=== PATIENT | male | born 1975 | race Caucasian/White ===

== ENCOUNTER 2017-02-20 17:10 | Emergency (ER) | payer OTHER ==
[~2017-02-20] VITALS: Ht 177.8 cm; Wt 70.0 kg
[2017-02-20 17:17] VITALS: TEMP 36.6; O2SAT 99; Ht 177.8 cm; Wt 70.0 kg
[2017-02-20] MEDS ORDERED: SODIUM CHLORIDE 0.9% 1000ML 1,000 ML IV STA (17:23)
[2017-02-20 17:51] LABS: BASO % 0.2 %; BASO ABS # 0.01 K/uL (0-0.2); COMPLETE YES; EOS % 4.8 %; HEMATOCRIT 43.7 % (42-52); IG% 0.2 %; LYMPH % 39.4 %; LYMPH ABS # 2.54 K/uL (1.2-3.4); MEAN CELL VOLUME 96.9 fL (80-100); MEAN CORPUSCULAR HEMOGLOBIN 33.9 pg (25-34); MEAN PLATELET VOLUME 10.5 fL (7.4-10.4); MONO % 8.5 %; NEUT % 46.9 %; PLATELET COUNT 224 K/uL (130-400); RED BLOOD COUNT 4.51 M/uL (4.7-6.1); WHITE BLOOD COUNT 6.44 K/uL (4.8-10.8)
--- NOTE | 2017-02-20 18:05 | EMERGENCY ROOM VISIT NOTE ---
History Report prepared by Charles: Robby Troncoso Under the Supervision of: Dr. Nory Cohen M.D. First contact with patient: 17:11 Chief Complaint: SYNCOPE (NEAR SYNCOPE) Stated Complaint: SYNCOPE History of Present Illness The patient is a 41 year old male who presents to the Emergency Room after a resolved syncopal episode that occurred prior to arrival. The patient states that he 'drank a lot last night' and 'felt queasy and extremely hung over.' He reports that he was out to dinner when all of a sudden he felt queasy, lightheaded, and began experiencing diaphoresis. The patient states that he gave it sometime and then lied his head down, and the next thing he remembered he was on the floor. He notes that he had not eaten anything since his late dinner last night. The patient reports that after receiving a sodium chloride solution in the ambulance, he feels much better. The patient's notes that he put his head down, and he looked like he was trying to stay conscious. She reports she touched him and he leaned his head into her. She notes she then proceeded to lay him on the floor. His states that the patient was unconscious for about 10 to 15 seconds, and then remained on the floor for a few minutes, after regaining consciousness. She reports that while the patient was on the floor, he was given ice and cold towels that brought his color back. The patient reports that this made him feel better. She notes that he tried standing because he wanted to get some air outside but lost his color again. The reports the patient had to sit back down. The patient denies vomiting. Source of History: patient, spouse/significant other Onset: Prior to arrival Position: other (global) Quality: other (syncopal episode) Timing: resolved Modifying Factors (Relieving): ice, other (sodium chloride solution) Associated Symptoms: + diaphoresis, No vomiting Note: Associated symptoms: dizziness, lightheaded Review of Systems See HPI for pertinent positives & negatives. A total of 10 systems reviewed and were otherwise negative. Past Medical & Surgical denies Family History No pertinent family history reported. Social History Smoking Status: Current Every Day Smoker (1 pack a day) Alcohol Use: occasionally Drug Use: none Marital Status: Occupation Status: employed Current/Historical Medications No Active Prescriptions or Reported Meds Allergies Coded Allergies: No Known Allergies (Unverified , 03/30/11) Physical Exam Vital Signs Date Time Temp Pulse Resp B/P Pulse Ox O2 Delivery O2 Flow Rate FiO2 02/20/17 20:30 84 16 124/78 99 02/20/17 19:30 63 16 126/90 97 02/20/17 18:55 74 16 126/92 96 Room Air 02/20/17 17:45 68 116/83 72 126/91 80 130/92 02/20/17 17:23 80 02/20/17 17:17 99 Room Air 02/20/17 17:17 36.6 66 16 129/88 97 Room Air Physical Exam Vital signs reviewed. General: Well-appearing, in no significant distress. HEENT: No scleral icterus, PERRLA, neck supple. Atraumatic. Cardiovascular: Regular rate and rhythm, no extra sounds. Pulmonary: Clear to auscultation bilaterally, normal work of breathing. Abdomen: Soft, nontender, nondistended, positive bowel sounds. Musculoskeletal: Atraumatic, no peripheral edema. Neurologic: Patient awake alert and oriented x 3, full strength in all 4 extremities. Cranial nerves 2 through 12 grossly intact. Skin: Warm, dry, no rash Medical Decision & Procedures Laboratory Results 02/20/17 17:00 Red Blood Count 4.51, Mean Corpuscular Volume 96.9, Mean Corpuscular Hemoglobin 33.9, Mean Corpuscular Hemoglobin Concent 35.0, Mean Platelet Volume 10.5, Neutrophils (%) (Auto) 46.9, Lymphocytes (%) (Auto) 39.4, Monocytes (%) (Auto) 8.5, Eosinophils (%) (Auto) 4.8, Basophils (%) (Auto) 0.2, Neutrophils # (Auto) 3.02, Lymphocytes # (Auto) 2.54, Monocytes # (Auto) 0.55, Eosinophils # (Auto) 0.31, Basophils # (Auto) 0.01 02/20/17 17:00 Test 02/20/17 00:00 02/20/17 17:00 02/20/17 17:43 Urine Color YELLOW Urine Appearance CLEAR (CLEAR) Urine pH 7.0 (4.5-7.5) Urine Specific [place] 1.005 (1.000-1.030) Urine Protein NEG (NEG) Urine Glucose (UA) NEG (NEG) Urine Ketones NEG (NEG) Urine Occult Blood NEG (NEG) Urine Nitrite NEG (NEG) Urine Bilirubin NEG (NEG) Urine Urobilinogen NEG (NEG) Urine Leukocyte Esterase NEG (NEG) White Blood Count 6.44 K/uL (4.8-10.8) Red Blood Count 4.51 M/uL (4.7-6.1) Hemoglobin 15.3 g/dL (14.0-18.0) Hematocrit 43.7 % (42-52) Mean Corpuscular Volume 96.9 fL (80-100) Mean Corpuscular Hemoglobin 33.9 pg (25-34) Mean Corpuscular Hemoglobin Concent 35.0 g/dl (32-36) Platelet Count 224 K/uL (130-400) Mean Platelet Volume 10.5 fL (7.4-10.4) Neutrophils (%) (Auto) 46.9 % Lymphocytes (%) (Auto) 39.4 % Monocytes (%) (Auto) 8.5 % Eosinophils (%) (Auto) 4.8 % Basophils (%) (Auto) 0.2 % Neutrophils # (Auto) 3.02 K/uL (1.4-6.5) Lymphocytes # (Auto) 2.54 K/uL (1.2-3.4) Monocytes # (Auto) 0.55 K/uL (0.11-0.59) Eosinophils # (Auto) 0.31 K/uL (0-0.5) Basophils # (Auto) 0.01 K/uL (0-0.2) RDW Standard Deviation 48.1 fL (36.4-46.3) RDW Coefficient of Variation 13.5 % (11.5-14.5) Immature Granulocyte % (Auto) 0.2 % Immature Granulocyte # (Auto) 0.01 K/uL (0.00-0.02) Anion Gap 12.0 mmol/L (3-11) Est Creatinine Clear Calc Drug Dose 94.3 ml/min Estimated GFR () 106.4 Estimated GFR (Non- 91.8 BUN/Creatinine Ratio 7.5 (10-20) Calcium Level 8.6 mg/dl (8.5-10.1) Magnesium Level 2.2 mg/dl (1.8-2.4) Total Bilirubin 0.5 mg/dl (0.2-1) Direct Bilirubin 0.1 mg/dl (0-0.2) Aspartate Amino Transf (AST/SGOT) 11 U/L (15-37) Alanine Aminotransferase (ALT/SGPT) 21 U/L (12-78) Alkaline Phosphatase 68 U/L (45-117) Total Creatine Kinase 249 U/L (39-308) Creatine Kinase MB 0.6 ng/ml (0.5-3.6) Creatine Kinase MB Ratio 0.2 (0-3.0) Total Protein 7.3 gm/dl (6.4-8.2) Albumin 3.9 gm/dl (3.4-5.0) Lipase 197 U/L (73-393) Thyroid Stimulating Hormone (TSH) 1.540 uIu/ml (0.300-4.500) Bedside Troponin I 0.000 ng/ml (0-0.045) Laboratory results per my review. Medications Administered Medications (Trade) Dose Ordered Sig/Jody Route Start Time Stop Time Status Last Admin Dose Admin Sodium Chloride (Nss 1000ml) 1,000 ml @ 999 mls/hr Q1H1M STAT IV 02/20/17 17:23 02/20/17 18:23 DC 02/20/17 17:48 999 MLS/HR ECG Indication: syncope Rate (beats per minute): 66 Rhythm: normal sinus Findings: no acute ischemic change, no ectopy ED Course 1722: Past medical records reviewed. The patient was evaluated in room A3. A complete history and physical examination was performed. Ordered Sodium Chloride 1000 ml @ 999 mls/hr IV. 2051: Upon reevaluation, the patient appeared to have improvement of his symptoms. I discussed findings with him. He verbalized agreement of the treatment plan. He was discharged home. Medical Decision Differential diagnosis: Etiologies such as benign positional vertigo, dehydration, hypovolemia, anemia, tumor, infection, hypoglycemia, electrolyte abnormalities, cardiac sources, intracerebral event, toxicologic, neurologic, as well as others were entertained. This patient was evaluated and appeared to be in no significant distress. Patient was hydrated with normal saline solution. He was feeling improved after the hydration he received by EMS. Laboratory work reveals no significant abnormalities. Vital signs are stable. EKG reveals no evidence of acute abnormalities. Pt was informed of the findings and will be d/c to the care of his . He will return to the ED for worsening of symptoms or any medical concerns. Impression Primary Impression: Syncope Scribe Attestation The scribe's documentation has been prepared under my direction and personally reviewed by me in its entirety. I confirm that the note above accurately reflects all work, treatment, procedures, and medical decision making performed by me. Departure Information Dispostion Home / Self-Care Prescriptions No Active Prescriptions or Reported Meds Referrals No Doctor, Assigned (PCP) Forms HOME CARE DOCUMENTATION FORM, IMPORTANT VISIT INFORMATION Patient Instructions My [facility] Additional Instructions Diagnosis: Syncope Drink plenty of fluids. Eat small frequent meals. Avoid alcohol, particularly in excess. Return to the ER for worsening of symptoms or any medical concerns.
[2017-02-20 18:08] LABS: BUN/CREATININE RATIO 7.5 (10-20); CALCIUM 8.6 mg/dl (8.5-10.1); MAGNESIUM 2.2 mg/dl (1.8-2.4); POTASSIUM 3.4 mmol/L (3.5-5.1)
[2017-02-20 19:27] LABS: CKMB/CK RATIO 0.2 (0-3.0); THYROID STIMULATING HORMONE 1.54 uIu/ml (0.300-4.500)
[2017-02-20 19:58] LABS: URINE APPEARANCE CLEAR (CLEAR); URINE BILIRUBIN NEG (NEG); URINE COLOR YELLOW; URINE NITRITE NEG (NEG); URINE SPECIFIC GRAVITY 1.005 (1.000-1.030); UROBILINOGEN NEG (NEG); ZZUR CULT IF INDIC CLEAN CATCH NO
[2017-02-20 20:16] LABS: MANUAL MICROSCOPIC REQUIRED? NO; REVIEW REQ? NO
[2017-02-20 20:30] VITALS: BP 124/78; PULSE 84; O2SAT 99
== END 2017-02-20 20:59 | disposition home or self-care (01) ==
LOC: C.EDA 17:10 → EDBD 17:10 → C.EDA 20:59
DX: R55 Syncope and collapse (principal); R61 Generalized hyperhidrosis; F17.200 Nicotine dependence, unspecified, uncomplicated

== ENCOUNTER → 2017-04-13 | Outpatient (CLI) | payer OTHER | END | disposition home or self-care (01) | LOC: C.PATHSPEC 16:16 | PROVIDERS: ATTEND Dermatology | DX: D22.5 Melanocytic nevi of trunk (principal); D22.62 Melanocytic nevi of left upper limb, including shoulder ==

== ENCOUNTER → 2017-12-08 | Outpatient (CLI) | payer OTHER | END | disposition home or self-care (01) | LOC: C.PATHSPEC 16:26 | PROVIDERS: ATTEND Physician Assistant | DX: D23.9 Other benign neoplasm of skin, unspecified (principal); D22.9 Melanocytic nevi, unspecified ==